=== PATIENT | female | born 1975 | race Caucasian/White ===

== ENCOUNTER 2020-12-27 14:37 | Emergency (ER) | payer MEDICAID ==
[~2020-12-27] VITALS: Ht 170.2 cm; Wt 65.8 kg
--- NOTE | 2020-12-27 15:35 | NUR ---
Pt found in room, tearful, shaking all over, with obvious anxiety attack occurring. Pt given verbal comfort measures, held pt's hands and demonstrated with return demonstration of square breathing technique to help start managment of anxiety, and then embalmer apprentice completed. Pt's friend assisting with breathing focus upon completion of embalmer apprentice, and awaiting MD exam.
--- NOTE | 2020-12-27 16:05 | NUR ---
Pt with good response to square breathing technique and hyperventilation resolved as well as shaking and tearfulness on reassessment. Clinincal assessment started at this time. Pt awaiting MD exam.
[2020-12-27] MEDS ORDERED: Estrogen (16:17)
[2020-12-27] MEDS ORDERED: Isosorbide (16:17)
[2020-12-27] MEDS ORDERED: [UNRECOGNIZED DRUG - REMARK] (16:17)
[2020-12-27] MEDS ORDERED: NALT50TA PO (16:17)
[2020-12-27] MEDS ORDERED: BUPR200T2 PO (16:17)
[2020-12-27] MEDS ORDERED: digoxin (16:17)
[2020-12-27] MEDS ORDERED: HYDROcodone/APAP 5/325 TABLET PO ONE ×2 (16:30→18:00)
[2020-12-27] MEDS ORDERED: SODIUM CHLORIDE FLUSH 10ML SYR IVF ONE (16:30)
[2020-12-27] MEDS ORDERED: HYDROcodone/APAP 5/325 TABLET ONE ×2 (16:50→17:59)
[2020-12-27 16:51] LABS: BASOPHILS % (AUTO) 1 % (0-1); EOSINOPHILS % (AUTO) 0 % (1-7); LYMPHOCYTES % (AUTO) 16 % (22-44); MEAN CORPUSCULAR HEMOGLOBIN 32.9 pg (27.0-34.8); MEAN CORPUSCULAR HGB CONC 34.2 g/dL (32.4-35.8); MEAN PLATELET VOLUME 8.8 fL (7.4-10.4); MONOCYTES % (AUTO) 8 % (2-9); NEUTROPHILS % (AUTO) 75 % (42-75); PLATELET COUNT 263 x10^3/uL (130-400); RED BLOOD COUNT 3.76 x10^6/uL (3.82-5.3); RED CELL DISTRIBUTION WIDTH 13.2 % (9.6-15.2)
[2020-12-27 16:54] LABS: ANION GAP 9 mmol/L (5-15); CALCIUM 8.5 mg/dL (8.5-10.1); CHLORIDE 105 mmol/L (98-107); CREATININE 0.69 mg/dL (0.55-1.02)
[2020-12-27 16:55] LABS: MD NO
--- NOTE | 2020-12-27 17:20 | NUR ---
Pt taken to CT by wheelchair at this time.
[2020-12-27] MEDS ORDERED: OMNIPAQUE 350 MG/ML, 75ML BOTTLE ONE (17:31)
--- NOTE | 2020-12-27 17:35 | NUR ---
Pt back from CT to room 20. Moved pt to room 19 at this time for comfort while awaiting admission. wheel fitter notified, notified of pt movement. VS reassessed. Skin feels hot, but found to be afebrile. HR and RR elevated, most likely secondary to increased anxiety following notification of admission.
--- NOTE | 2020-12-27 18:45 | NUR ---
Pain decreased to 8/10 since second dose of PO pain med given on reassessment. Wound cleaned and dressed by EMT and pt readied for d/c including d/c of single IV site in [facility].
[2020-12-27 18:59] VITALS: BP 108/77
== END 2020-12-27 19:03 | disposition home or self-care (01) ==
LOC: ED 18:14
DX: L02.01 Cutaneous abscess of face (principal); K04.7 Periapical abscess without sinus
CPT/HCPCS: 36415; 70487; 80048; 82040; 85025; 99285; Q9967